=== PATIENT | male | born 1995 | race Caucasian/White ===

== ENCOUNTER 2020-08-01 09:31 | Emergency (ER) | payer OTHER, SELFPAY ==
[2020-08-01 09:45] VITALS: BP 146/83; PULSE 70; RESP 18; TEMP 37.2; O2SAT 100
--- NOTE | 2020-08-01 09:55 | ED.DENTAL ---
HPI - Dental/Oral General Chief complaint: Dental/Oral Stated complaint: Dental/Oral Time Seen by Provider: 08/01/20 09:45 Source: patient and RN notes reviewed Mode of arrival: ambulatory Limitations: no limitations History of Present Illness HPI Narrative: 24-year-old male presents with concern for right lower facial swelling, gum swelling. Reports symptoms started yesterday. Reports a year ago he lost a crown from tooth #28. Denies any problems with infection in the past. Reports pain when he pushes on the area. Denies any intervention. Denies any swollen tongue, difficulty swallowing, drooling. MD Complaint: tooth pain Related Data Allergies Allergy/AdvReac Type Severity Reaction Status Date / Time shellfish derived Allergy Intermediate THROAT, Verified 08/01/20 09:56 LIPS AND TONGUE SWELL Review of Systems Review of Systems: Narrative: CONSTITUTIONAL: Denies malaise, chills, sweats, or fever. EYES: Denies visual changes ENT: Denies rhinorrhea, congestion, sinus pain, otalgia or sore throat. Reports right lower jaw earache swelling CARDIOVASCULAR: Denies chest pain, palpitations, or edema. RESPIRATORY: Denies cough or dyspnea. SKIN: Denies rash or itching. MUSCULOSKELETAL: Denies myalgia. NEUROLOGIC: Denies headache. All systems reviewed & are unremarkable except as noted in HPI and below PMFSH Comments At time of signature, agree with nursing past medical, surgical, social and family history. There is no relevant family history pertinent to the presenting complaint Exam Narrative: Exam Narrative: GENERAL: Well-appearing, well-nourished, and in no acute distress. HEAD: Normocephalic, atraumatic. EYES: PERRLA, conjunctivae clear ENT: Nares clear. Mucous membranes moist. Oropharynx without erythema or lesions. No drooling. Right lower facial swelling noted, periapical abscess noted beneath tooth #28 NECK: Supple. No lymphadenopathy. CHEST: No respiratory distress. Speaks in full sentences. HEART: Regular rate and rhythm. SKIN: Warm, dry, no rash. NEURO: Alert and oriented x3 PSYCH: Normal mood and affect Course Course Emergency Course: Patient is aware of diagnosis, understands and agrees to treatment plan. Anticipatory guidance given. Patient agrees to follow-up as directed and is aware of reasons to seek care at the emergency department. Portions of this record may have been created with voice recognition software Vital Signs Vital signs: Vital Signs Temperature 98.9 F 08/01/20 09:45 Pulse Rate 70 08/01/20 09:45 Respiratory Rate 18 08/01/20 09:45 Blood Pressure 146/83 H 08/01/20 09:45 Pulse Oximetry 100 08/01/20 09:45 Temperature 98.9 F 08/01/20 09:45 Pulse Rate 70 08/01/20 09:45 Respiratory Rate 18 08/01/20 09:45 Blood Pressure 146/83 H 08/01/20 09:45 Pulse Oximetry 100 08/01/20 09:45 Reviewed. Pt has been instructed to follow up with his primary care provider within the next week regarding his elevated blood pressure today. Procedures Abscess I/D oral: Date of Incision: 08/01/20 Time of Incision: 09:58 Side (if applicable): right Technique: needle aspiration Amount of fluid expressed (mL): 10 Irrigation: No Packing used?: none I&D Results: Pus MDM - Dental/Oral MDM Narrative Medical decision making narrative: Patients pain and complaint coupled with physical findings are consistant with dentalgia. There are no focal signs of space occupying lesions that are compromising to the airway; no dysphagia, odynophagia, dysphonia, or dyspnea. No uvular deviation or soft palate edema. Patient is non-toxic appearing. The floor of the mouth is soft with no signs of Jeronimo's Angina; no induration below mandible, no neck pain. Patient is without trismus or drooling and able to swallow secretions. Patient is felt appropriate for discharge home with dental follow up. Critical Care Time Critical Care Time C
== END 2020-08-01 10:10 | disposition home or self-care (01) ==
PROVIDERS: Emergency Provider Nurse Practitioner
DX: K04.7 Periapical abscess without sinus (principal)
CPT/HCPCS: 41800; 99213; G0463

== ENCOUNTER 2023-08-02 14:13 | Emergency (ER) | payer OTHER, SELFPAY ==
[2023-08-02 14:14] VITALS: BP 129/74; PULSE 85; RESP 20; TEMP 36.7; O2SAT 98
--- NOTE | 2023-08-02 14:54 | PC.NURSE ---
Pt seen walking out of waiting toward vehicle with family. RN called to bring him to a room and no answer.
== END 2023-08-02 14:54 | disposition left against medical advice (07) ==
DX: S09.90XA Unspecified injury of head, initial encounter (principal); W10.9XXA Fall (on) (from) unspecified stairs and steps, initial encounter
CPT/HCPCS: 99199

== ENCOUNTER 2024-04-02 09:37 | Emergency (ER) | payer OTHER, SELFPAY ==
--- NOTE | ~2024-04-02 | CT_ITS ---
EXAMINATION: CT facial bones w con DATE: 04/02/2024 11:09 INDICATION: Right facial pain and swelling. TECHNIQUE: Computed tomography (CT) of the facial bones and maxillofacial region was performed with 7 5 mL Omnipaque 350 intravenous contrast. Automated exposure control and iterative reconstruction tech nique were employed. The dose-length product was 293.92 mGy-cm. COMPARISON: None. FINDINGS: There is right face soft tissue swelling. There is mild right submandibular lymphadenopathy , likely reactive. There is mucosal thickening in the paranasal sinuses, worst in right maxillary sin us. Tooth 1 demonstrates a carious lesion and periapical lucencies with breech of the buccal cortex o f the alveolar process. There are carious lesions of 4, 5, 9, 10, 12, and 13. There is a carious lesi on of 16 with periapical lucencies and breech of the buccal cortex of the alveolar process. There are carious lesions of 17, 18, 27, and 28. There is a carious lesion of 29 with periapical lucencies. Th ere is a carious lesion of 30. There is a carious lesion of 31 with periapical lucencies. IMPRESSION: 1. Extensive dental disease. 2. Right face soft tissue swelling. No soft tissue abscess. Reviewed, dictated and finalized at location A.
--- NOTE | 2024-04-02 09:41 | ED.DENTAL ---
HPI - Dental/Oral General Chief complaint: Dental/Oral Stated complaint: facial swelling Time Seen by Provider: 04/02/24 09:40 Source: patient Mode of arrival: ambulatory Limitations: no limitations History of Present Illness HPI Narrative: this is a 28-year-old male with chief complaint of right-sided facial swelling that started this morning after waking up. Patient reports significant pain and pressure just below his eye throughout the right cheek. States that he has not had any recent dental pain but did have a lesion to his buccal mucosa near the gum recently. States that he knows he has bad teeth but has not had any recent infections. Denies fevers, chills, nausea, vomiting, trismus, drooling. Related Data Allergies Allergy/AdvReac Type Severity Reaction Status Date / Time shellfish derived Allergy Intermediate THROAT, Verified 04/02/24 10:29 LIPS AND TONGUE SWELL Review of Systems Review of Systems: All systems as dictated in HPI Exam Narrative: GENERAL: Well-appearing, well-nourished, and in no acute distress. HEAD: Normocephalic, atraumatic. EYES: PERRLA and EOMI. ENT: right-sided facial swelling noted on exam. Significant tenderness throughout right cheek/ maxilla area. No overlying redness or fluctuance. Poor dentition to the upper teeth. Floor of the mouth intact. No trismus. No drooling. Nares clear, no rhinorrhea or epistaxis. Mucous membranes moist. NECK: Supple. No adenopathy or masses. CHEST: No respiratory distress. Clear to auscultation. No wheezes rales or rhonchi HEART: Regular rate and rhythm. No murmur heard. Normal peripheral pulses. ABDOMEN: Soft, nontender, nondistended, normal active bowel sounds. MSK: Normal range of motion. No edema. SKIN: Warm, dry, no rash. NEURO: Alert and oriented x4. No focal deficits. PSYCH: Normal mood and affect. Course Vital Signs Vital signs: Vital Signs Temperature 98.0 F 04/02/24 09:43 Pulse Rate 65 04/02/24 09:43 Respiratory Rate 17 04/02/24 09:43 Blood Pressure 154/94 H 04/02/24 09:43 Pulse Oximetry 98 04/02/24 09:43 Oxygen Delivery Room Air 04/02/24 09:43 Temperature 98.0 F 04/02/24 09:43 Pulse Rate 65 04/02/24 09:43 Respiratory Rate 17 04/02/24 09:43 Blood Pressure 154/94 H 04/02/24 09:43 Pulse Oximetry 98 04/02/24 09:43 Oxygen Delivery Room Air 04/02/24 09:43 MDM - Dental/Oral MDM Narrative Medical decision making narrative: This is a 28-year-old male who presents to the ED for chief complaint of right-sided facial swelling and pain beginning today. vitals are normal. Exam remarkable for the above. No trismus or drooling. No evidence of Jeronimo's angina. lab work remarkable for mildly elevated white count of 12.5. CT facial with con: IMPRESSION: 1. Extensive dental disease. 2. Right face soft tissue swelling. No soft tissue abscess.. presentation consistent with dental disease. Improved greatly with Toradol and steroid shot here. Will be given Augmentin for potential soft tissue infection. Encouraged follow-up with dentist for definitive management. He is understanding and agreeable with this plan. Return precautions given Lab Data 04/02/24 10:29 04/02/24 10:29 Labs: Lab Results 04/02/24 Range/Units 10:29 WBC 12.5 H (4.5-10.0) K/mm3 RBC 5.40 (4.6-6.20) M/mm3 Hgb 16.9 (14.0-18.0) g/dL Hct 48.6 (42.0-52.0) % MCV 90.0 (80-100) fl MCH 31.3 (26-34) pg MCHC 34.8 (32-36) g/dl RDW 12.7 (11.5-14.5) % Plt Count 240 (150-375) k/mm3 MPV 11.6 H (7.4-10.4) fl Immature Gran % (Auto) 0.4 (0-0.5) % Neut % (Auto) 76.8 H (45.5-73.1) % Lymph % (Auto) 12.5 L (18.3-44.2) % [place] % (Auto) 8.5 (2.6-8.5) % Eos % (Auto) 1.6 (0-4.4) % Baso % (Auto) 0.2 (0.2-1.2) % Lymph # (Auto) 1.56 (0.9-3.2) K/mm3 [place] # (Auto) 1.1 H (0.1-0.6) K/mm3 Eos # (Auto) 0.2 (0-0.3) K/mm3 Baso #
[2024-04-02 09:43] VITALS: BP 154/94; PULSE 65; RESP 17; TEMP 36.7; O2SAT 98
[2024-04-02] MEDS: methylPREDNISolone SOD SUCC 125 MG VIAL 80 MG IV PUSH (10:30)
[2024-04-02] MEDS: KETOROLAC 30 MG/ML VIAL (*BKC) IV PUSH (10:30)
[2024-04-02 10:37] LABS: Basophils Percent Auto 0.2 % (0.2-1.2); Eosinophils Absolute Auto 0.2 K/mm3 (0-0.3); Eosinophils Percent Auto 1.6 % (0-4.4); Hematocrit 48.6 % (42.0-52.0); Hemoglobin 16.9 g/dL (14.0-18.0); Immature Granulocyte Absolute 0.05 K/mm3 (0.00-0.031); Immature Granulocyte Percent A 0.4 % (0-0.5); Lymphocytes Absolute Auto 1.56 K/mm3 (0.9-3.2); Lymphocytes Percent Auto 12.5 % (18.3-44.2); Mean Corpuscular HGB Conc 34.8 g/dl (32-36); Mean Corpuscular Hemoglobin 31.3 pg (26-34); Mean Platelet Volume 11.6 fl (7.4-10.4); Monocytes Absolute Auto 1.1 K/mm3 (0.1-0.6); Monocytes Percent Auto 8.5 % (2.6-8.5); Neutrophils Absolute Auto 9.6 K/mm3 (1.3-6.7); Neutrophils Percent Auto 76.8 % (45.5-73.1); Platelet Count Result 240 k/mm3 (150-375); Red Cell Distribution Width 12.7 % (11.5-14.5); White Blood Count 12.5 K/mm3 (4.5-10.0)
[2024-04-02 10:52] LABS: Alanine Aminotransferase 19 U/L (6-50); Albumin Level 4.5 g/dL (3.5-5.1); Alkaline Phosphatase 63 U/L (38-126); Anion Gap 11 mmol/L (4-12); Aspartate Amino Transferase 25 U/L (17-59); Bilirubin,Total 1.1 mg/dL (0.2-1.3); Blood Urea Nitrogen 9 mg/dL (9-20); Carbon Dioxide 25 mmol/L (22-30); Chloride 102 mmol/L (98-107); Estimated CRCL calculation 117 ml/min; Estimated Glomerular Filt Rate > 60; Glucose 130 mg/dL (65-110); Potassium 4.2 mmol/L (3.4-5.0); Sodium 138 mmol/L (137-145)
[2024-04-02 13:31] LABS: CRP < 0.5 mg/dL (<1.0)
== END 2024-04-02 11:38 | disposition home or self-care (01) ==
PROVIDERS: Emergency Provider Physician Assistant
DX: K02.9 Dental caries, unspecified (principal)
CPT/HCPCS: 36415; 70487; 80053; 85025; 86140; 96374; 96375; 99284; J1885; J2919; Q9967

== ENCOUNTER 2024-04-03 08:02 | Inpatient (IN) | payer OTHER, SELFPAY ==
[2024-04-03 08:02] VITALS: BP 158/78; PULSE 88; RESP 16; TEMP 36.4; O2SAT 97
--- NOTE | 2024-04-03 08:33 | ED.DENTAL ---
HPI - Dental/Oral General Chief complaint: Dental/Oral Stated complaint: right sided facial swelling Time Seen by Provider: 04/03/24 08:12 Source: patient Mode of arrival: ambulatory Limitations: no limitations History of Present Illness HPI Narrative: Patient presents with right-sided facial pain and swelling. He denies any fevers. He was here yesterday and obtained labs as well as CT imaging which did not identify an abscess but did note marked dental carmelina. He was given Toradol and steroid and advised to take Motrin and Tylenol and prescribed Augmentin. Patient was unable to greens picker Augmentin as he had to go to work. He states he took the maximum daily allowed dose of Tylenol with no change. He states the pain and swelling has extended to around his right eye but denies any pain with extraocular movements. He cannot recall his last oral intake secondary to pain and nausea. Related Data Home Medications Medication Instructions Recorded Confirmed No Home Medications 04/03/24 04/03/24 Allergies Allergy/AdvReac Type Severity Reaction Status Date / Time shellfish derived Allergy Intermediate THROAT, Verified 04/03/24 08:24 LIPS AND TONGUE SWELL PMFSH Past Medical History Medical History Dental caries Family History Family History Grandparent Acute myocardial infarction Social History Social History Social History: Surrogate medical decision maker: Clare Ivan, spouse. Code status: Full code. Smoking status: Light tobacco smoker Tobacco type: cigars Alcohol intake: current Substance use: never Do You Feel Safe in your Home?: Yes Lack of Transportation: No Lack of Food: Never True Current Housing: I Have Housing Concerned About Future Housing: No Difficulty Paying Gas/Electric Bills: No Difficulty Paying for Meds: No Currently Unemployed: No Education: Associate Degree Difficulty w/ Childcare or Family Care: No Spiritual care concerns: No Exam Narrative: GENERAL: well-nourished, and in no acute distress. HEAD: Normocephalic, atraumatic. EYES: Non injected, non icteric. No pain with EOMs. Face/ENT: Nares clear, no rhinorrhea or epistaxis. Tacky mucous membranes. Floor of mouth without swelling. Mild trismus though is able to open jaw, not clenched and could insert 2 fingers. Right sided facial swelling, palpable externally as well as buccal mucosa but without christina induration. Mild left periorbital swelling and some ecchymosis/ allergic shiners and edema. NECK: Supple. CHEST: Speaking in full sentences. No respiratory distress. HEART: Regular rate and rhythm. . ABDOMEN: Soft, nondistended. EXTREMITIES: Normal range of motion. No edema. SKIN: Warm, dry, no rash. NEURO: No focal deficits. Alert and oriented x3. PSYCH: Normal mood and affect. Course Vital Signs Vital signs: Vital Signs Temperature 97.6 F 04/03/24 08:02 Pulse Rate 88 04/03/24 08:02 Respiratory Rate 16 04/03/24 08:02 Blood Pressure 158/78 H 04/03/24 08:02 Pulse Oximetry 97 04/03/24 08:02 Temperature 98.0 F 04/03/24 21:24 Pulse Rate 87 04/03/24 21:24 Respiratory Rate 14 04/03/24 21:24 Blood Pressure 142/85 H 04/03/24 21:24 Pulse Oximetry 95 04/03/24 21:24 Oxygen Delivery Room Air 04/03/24 12:00 MDM - Dental/Oral MDM Narrative Medical decision making narrative: Patient presents with right-sided facial pain and swelling. He denies any fevers. He was here yesterday and obtained labs as well as CT imaging which did not identify an abscess but did note marked dental carmelina. He was given Toradol and steroid and advised to take Motrin and Tylenol and prescribed Augmentin. Patient was unable to greens picker Augmentin as he had to go to work. He states he took the maximu
[2024-04-03] MEDS: ONDANSETRON INJ 4 MG/2 ML VIAL IV PUSH (09:05)
[2024-04-03] MEDS: MORPHINE SULFATE (*CRX) 4 MG/ML INJ IV PUSH (09:05)
[2024-04-03] MEDS: SODIUM CHLORIDE 0.9% IV 1,000 ML 999 ML IV CONT (09:10)
[2024-04-03] MEDS: VANCOMYCIN 1,250 MG/NS 250 ML 1,250 MG/250 ML BAG 166.67 MG IVPB (09:11)
[2024-04-03 09:12] LABS: Basophils Absolute Auto 0.1 K/mm3 (0.0-0.1); Basophils Percent Auto 0.3 % (0.2-1.2); Eosinophils Absolute Auto 0.1 K/mm3 (0-0.3); Eosinophils Percent Auto 0.7 % (0-4.4); Hematocrit 48.8 % (42.0-52.0); Hemoglobin 17.1 g/dL (14.0-18.0); Immature Granulocyte Absolute 0.06 K/mm3 (0.00-0.031); Immature Granulocyte Percent A 0.4 % (0-0.5); Lymphocytes Absolute Auto 1.72 K/mm3 (0.9-3.2); Lymphocytes Percent Auto 10.3 % (18.3-44.2); Mean Corpuscular Hemoglobin 31.5 pg (26-34); Mean Corpuscular Volume 89.9 fl (80-100); Mean Platelet Volume 11.5 fl (7.4-10.4); Monocytes Absolute Auto 1.5 K/mm3 (0.1-0.6); Monocytes Percent Auto 8.7 % (2.6-8.5); Neutrophils Absolute Auto 13.3 K/mm3 (1.3-6.7); Neutrophils Percent Auto 79.6 % (45.5-73.1); Platelet Count Result 241 k/mm3 (150-375); Red Blood Count 5.43 M/mm3 (4.6-6.20); Red Cell Distribution Width 12.8 % (11.5-14.5); White Blood Count 16.7 K/mm3 (4.5-10.0)
[2024-04-03 09:21] LABS: Anion Gap 12 mmol/L (4-12); Blood Urea Nitrogen 13 mg/dL (9-20); Calcium 8.8 mg/dL (8.4-10.2); Carbon Dioxide 27 mmol/L (22-30); Chloride 98 mmol/L (98-107); Estimated CRCL calculation 115 ml/min; Estimated Glomerular Filt Rate > 60; Glucose 140 mg/dL (65-110); Sodium 137 mmol/L (137-145)
--- NOTE | 2024-04-03 10:55 | ADMGEN ---
This patient, Dang Ivan III, was admitted to Medical Room 253-01. Patient/family oriented to hospital policies and general routines including ID bracelet, bed and alarms, visiting hours, pain management, procedures, bathroom and other care routines, personal items, smoking policy, room service/diet, and visiting hours. Information on how to activate the Rapid Response Team has been discussed. Patient/Family are encouraged to report perceived risks to care and to ask questions if they do not understand what they are told or what they should do.
[2024-04-03 11:24] VITALS: BP 146/78; PULSE 57; RESP 16; TEMP 36.9; O2SAT 98; BMI 29.2
[2024-04-03] MEDS: MORPHINE SULFATE (*CRX) 2 MG/ML INJ IV PUSH (11:32)
[2024-04-03] MEDS: VANCOMYCIN 1,250 MG/NS 250 ML 1,250 MG/250 ML BAG 167 MG IVPB (11:35)
[2024-04-03] MEDS: IBUPROFEN 400 MG TABLET PO ×2 (13:07→17:58)
--- NOTE | 2024-04-03 13:10 | PM.IMHP ---
H&P: HPI History of Present Illness Date/Time: 04/03/24 13:10 Chief Complaint: Swelling right side of face. Narrative: This is a previously healthy 28-year-old male who presented to the emergency department for evaluation of right sided facial swelling. He was seen in the ED yesterday morning after awaking with pressure-like pain and swelling on the right side of his face. CT scan showed extensive dental disease and right face soft tissue swelling with no obvious abscess. He was prescribed Augmentin with instructions to follow-up with his primary care provider and ultimately done as for definitive management. He had to work yesterday and was unable to get the antibiotics filled. When he got up this morning the redness and swelling had worsened quite a bit and he came back in. He has been taking Tylenol for pain without much relief. He denies fever, pain with extraocular motions, nausea, vomiting, shortness of breath, difficulty swallowing, and dental pain. He does however mention having something similar to a canker sore on a right upper gum last week but there was no pain or drainage from that. In the ED: He was afebrile on arrival. Blood pressures have been running in the 140s to 150s systolic. Labs were significant for WBC count of 16.7 and a glucose of 140. He was given vancomycin 1250 mg and is being admitted in this setting for further treatment. Review of Systems Review of Systems: 12 systems were reviewed and are negative except for as per HPI. [facility] Past Medical History Medical History Dental caries Family History Family History Grandparent Acute myocardial infarction Social History Social History Social History: Surrogate medical decision maker: Clare Moncho, spouse. Code status: Full code. Smoking status: Light tobacco smoker Tobacco type: cigars Alcohol intake: current Substance use: never Do You Feel Safe in your Home?: Yes Lack of Transportation: No Lack of Food: Never True Current Housing: I Have Housing Concerned About Future Housing: No Difficulty Paying Gas/Electric Bills: No Difficulty Paying for Meds: No Currently Unemployed: No Education: Associate Degree Difficulty w/ Childcare or Family Care: No Spiritual care concerns: No Meds Home Medications and Allergies Home Medications Medication Instructions Recorded Confirmed Type No Home Medications 04/03/24 04/03/24 History Allergies Allergy/AdvReac Type Severity Reaction Status Date / Time shellfish derived Allergy Intermediate THROAT, Verified 04/03/24 08:24 LIPS AND TONGUE SWELL Vital Signs Vital Signs - 24 hr 04/03/24 08:02 04/03/24 11:24 Temperature 97.6 F 98.4 F Pulse Rate 88 57 L Respiratory Rate 16 16 Blood Pressure 158/78 H 146/78 H Pulse Oximetry 97 98 Exam Narrative: General: Mildly ill-appearing male in the semi-Khan position in bed. Weight: 97.7 kg. BMI: 29.2. HEENT: PERRL, EOMI. Sclera anicteric. Mild swelling of the right upper lip. There is induration erythema over the right cheek with reactive edema under the right eye. Floor of the mouth is without swelling. The area is warm and tender to touch. Neck: Supple. No lymphadenopathy. Respiratory: Lungs are clear to auscultation bilaterally. Cardiovascular: Regular rate and rhythm with S1-S2. Gastrointestinal: Abdomen is soft, nontender, and nondistended with positive bowel sounds. Skin: Warm and dry. No rash or lesions on limited exam. Extremities: No cyanosis, clubbing, or edema. Radial and pedal pulses intact. Neurological: Alert. Cranial nerves 2-12 are grossly intact. No gross focal deficits to casual conversation. Psychiatric: Pleasant and cooperative with normal mood and affect. Judgment and insight intact. H&P:
[2024-04-03 13:48] VITALS: BP 145/77; PULSE 57; RESP 18; TEMP 37.2; O2SAT 99
[2024-04-03 16:12] LABS: MRSA (PCR) NOT DETECTED (NOT DETECTE)
[2024-04-03] MEDS: HYDROcodone/acetaminophen (*CRX) 5-325 MG TABLET 1 TAB PO (17:59)
[2024-04-03] MEDS: AMPICILLIN SULB 3 GM/NS 100 ML 3 GM/100 ML VIAL IVPB (18:03)
[2024-04-03] MEDS: VANCOMYCIN 1,500 MG/NS 500 ML 1,500 MG/500 ML BAG 250 MG IVPB (20:32)
[2024-04-03] MEDS: HYDROmorphone HCL INJ (*CRX) 1 MG/ML SYR 0.5 MG IV PUSH (20:33)
[2024-04-03 21:07] VITALS: O2SAT 95
[2024-04-03 21:24] VITALS: BP 142/85; PULSE 87; RESP 14; TEMP 36.7; O2SAT 95
[2024-04-04 01:17] LABS: Hemoglobin A1C 6.2 % (<5.7)
[2024-04-04] MEDS: HYDROcodone/acetaminophen (*CRX) 7.5-325 MG TABLET 1 TAB PO ×4 (01:27→20:09)
[2024-04-04] MEDS: AMPICILLIN SULB 3 GM/NS 100 ML 3 GM/100 ML VIAL IVPB ×5 (01:29→23:46)
[2024-04-04 04:55] LABS: Hematocrit 49.2 % (42.0-52.0); Hemoglobin 17.2 g/dL (14.0-18.0); Mean Corpuscular Hemoglobin 31.6 pg (26-34); Mean Corpuscular Volume 90.3 fl (80-100); Mean Platelet Volume 11.2 fl (7.4-10.4); Platelet Count Result 215 k/mm3 (150-375); Red Blood Count 5.45 M/mm3 (4.6-6.20); Red Cell Distribution Width 12.7 % (11.5-14.5); White Blood Count 13.2 K/mm3 (4.5-10.0)
[2024-04-04 05:21] LABS: Anion Gap 11 mmol/L (4-12); Blood Urea Nitrogen 9 mg/dL (9-20); Calcium 8.5 mg/dL (8.4-10.2); Carbon Dioxide 27 mmol/L (22-30); Chloride 98 mmol/L (98-107); Estimated CRCL calculation 106 ml/min; Estimated Glomerular Filt Rate > 60; Glucose 132 mg/dL (65-110); Magnesium 1.9 mg/dL (1.6-2.3); Potassium 4.1 mmol/L (3.4-5.0); Sodium 136 mmol/L (137-145)
[2024-04-04 05:37] VITALS: BP 146/85; PULSE 78; RESP 16; TEMP 36.7; O2SAT 96
--- NOTE | 2024-04-04 06:44 | PM.IMPN ---
Progress Note: A&P Assessment and Plan (1) Facial cellulitis: Code(s): L03.211 - Cellulitis of face Status: Acute Assessment and Plan: Right facial swelling started on 04/02. He reported to the ED and was prescribed Augmentin with instructions to follow up with PCP. However he did not fill this prescription and the facial swelling and redness got worse. - CT face: Extensive dental disease and right face soft tissue swelling. No soft tissue abscess. - Received vancomycin 1250 mg in the ED. - Start Unasyn given suspected odontogenic source. (2) Infected dental caries: Code(s): K02.9 - Dental caries, unspecified; K04.7 - Periapical abscess without sinus Status: Acute Assessment and Plan: Ongoing issues with dental caries. - CT face: Extensive dental disease and right face soft tissue swelling. No soft tissue abscess. - Definitive management per dentist. (3) Hyperglycemia: Code(s): R73.9 - Hyperglycemia, unspecified Status: Acute Assessment and Plan: Random glucose was 140. Fasting glucose on am labs: 132 A1c: 6.2 Patient has prediabetes. Suggest diet and exercise. Patient to follow up with his PCP. (4) Elevated blood pressure reading: Code(s): R03.0 - Elevated blood-pressure reading, without diagnosis of hypertension Status: Acute Assessment and Plan: Blood pressures running in the 140s-150s systolic. Trend for now; will likely need ambulatory monitoring. Time Spent With Patient Time with patient: 25 - 35 minutes Subjective Date/time seen: 04/04/24 06:44 Interval history: 28-year-old male who presented to the emergency department for evaluation of right sided facial swelling. Patient is pleasant lying comfortably in bed. He continues to endorse slight pain to the right side of his face that he describes as a pressure. He states that the swelling has improved since yesterday. He remains on IV vanc and unasyn at this time with WBC improving. He states the pain is well controlled on the current pain regimen. He notes that he has a dentist but he has not seen him in several years. Discussed with patient the importance of following up with a dentist for the dental carries as these are the likely cause of his current symptoms. He states understanding. Patient denies any vision changes, pain with EOM, headaches, nausea/vomiting, shortness of breath. Review of Systems Review of Systems: 12 systems were reviewed and are negative except for as per HPI. All systems reviewed & are unremarkable except as noted in HPI and below Exam Narrative: AF HR 78 RR 16 SpO2 96 BP 146/85 General: male in no acute respiratory distress who is nontoxic appearing, lying semi recumbent in bed. HEENT: Normocephalic. Atraumatic. Pupils equal round reactive to light. Extraocular movement intact. Sclera clear and anicteric. Swelling, redness and pain with palpation of the right side of the face extending from the right side of the lips to the right eyebrow. Chest: Lungs are clear to auscultation bilaterally. No wheezes or crackles. CV: Heart was regular rate and rhythm. S1/S2. No murmurs, gallops, or rubs. Abd: Abdomen was soft. Nontender. Nondistended. Positive bowel sounds. No organomegaly or masses. Neuro: Speech is clear. Psych: Normal mood and affect. Patient is pleasant and cooperative. Objective Data Vital Signs Vital Signs: Vital Signs - 24 hr 04/03/24 08:02 04/03/24 11:24 04/03/24 13:48 Temperature 97.6 F 98.4 F 98.9 F Pulse Rate 88 57 L 57 L Respiratory Rate 16 16 18 Blood Pressure 158/78 H 146/78 H 145/77 H Pulse Oximetry 97 98 99 Oxygen Delivery 04/03/24 12:00 04/03/24 21:24 04/03/24 20:00 Temperature 98.0 F Pulse Rate 87 Respiratory Rate 14 Blood Pressure 142/85 H Pulse Oximetry 95 Oxygen Delivery Room Air Room Air 04/03/24 21:07 04/04/24 05:37 Temperature 98.0 F Pulse Rate 78 Respiratory Rate
[2024-04-04] MEDS: VANCOMYCIN 1,500 MG/NS 500 ML 1,500 MG/500 ML BAG 250 MG IVPB (08:18)
[2024-04-04] MEDS: HYDROmorphone HCL INJ (*CRX) 1 MG/ML SYR 0.5 MG IV PUSH (10:48)
[2024-04-04] MEDS: IBUPROFEN 400 MG TABLET PO (12:39)
[2024-04-04 14:00] VITALS: PULSE 102; RESP 20; TEMP 37.1; O2SAT 97
[2024-04-04 14:45] VITALS: BP 142/76
[2024-04-04 20:10] VITALS: BP 149/90; PULSE 93; RESP 18; TEMP 37.1; O2SAT 99
[2024-04-04 21:10] LABS: Vancomycin Trough 8.8 ug/mL (10.0-20.0)
[2024-04-04] MEDS: VANCOMYCIN 1,750 MG/NS 500 ML 1,750 MG/500 ML BAG 250 MG IVPB (22:14)
[2024-04-05 05:13] LABS: Basophils Percent Auto 0.4 % (0.2-1.2); Eosinophils Absolute Auto 0.1 K/mm3 (0-0.3); Eosinophils Percent Auto 1.3 % (0-4.4); Hematocrit 47.3 % (42.0-52.0); Hemoglobin 16.4 g/dL (14.0-18.0); Immature Granulocyte Absolute 0.03 K/mm3 (0.00-0.031); Immature Granulocyte Percent A 0.4 % (0-0.5); Lymphocytes Absolute Auto 1.12 K/mm3 (0.9-3.2); Lymphocytes Percent Auto 15.1 % (18.3-44.2); Mean Corpuscular HGB Conc 34.7 g/dl (32-36); Mean Corpuscular Volume 89.4 fl (80-100); Mean Platelet Volume 11.6 fl (7.4-10.4); Monocytes Absolute Auto 0.7 K/mm3 (0.1-0.6); Monocytes Percent Auto 9.6 % (2.6-8.5); Neutrophils Absolute Auto 5.4 K/mm3 (1.3-6.7); Neutrophils Percent Auto 73.2 % (45.5-73.1); Platelet Count Result 188 k/mm3 (150-375); Red Blood Count 5.29 M/mm3 (4.6-6.20); Red Cell Distribution Width 12.3 % (11.5-14.5); White Blood Count 7.4 K/mm3 (4.5-10.0)
[2024-04-05] MEDS: AMPICILLIN SULB 3 GM/NS 100 ML 3 GM/100 ML VIAL IVPB ×2 (05:30→10:19)
[2024-04-05 05:42] LABS: Alanine Aminotransferase 16 U/L (6-50); Albumin Level 3.9 g/dL (3.5-5.1); Alkaline Phosphatase 60 U/L (38-126); Anion Gap 9 mmol/L (4-12); Aspartate Amino Transferase 24 U/L (17-59); Bilirubin,Total 0.7 mg/dL (0.2-1.3); Blood Urea Nitrogen 10 mg/dL (9-20); Calcium 8.5 mg/dL (8.4-10.2); Carbon Dioxide 27 mmol/L (22-30); Chloride 98 mmol/L (98-107); Estimated CRCL calculation 106 ml/min; Estimated Glomerular Filt Rate > 60; Glucose 126 mg/dL (65-110); Potassium 4.1 mmol/L (3.4-5.0); Sodium 134 mmol/L (137-145)
[2024-04-05 05:50] VITALS: BP 136/69; PULSE 95; RESP 16; TEMP 36.6; O2SAT 95
[2024-04-05] MEDS: VANCOMYCIN 1,750 MG/NS 500 ML 1,750 MG/500 ML BAG 250 MG IVPB (10:55)
--- NOTE | 2024-04-05 11:57 | PM.DS ---
DS: Admitting Diagnosis Discharge Date 04/05/2024 Admitting Diagnosis Facial cellulitis Infected dental caries Hyperglycemia Elevated blood pressure readings DS: Discharge Diagnosis Discharge Diagnosis (1) Facial cellulitis: Code(s): L03.211 - Cellulitis of face Status: Acute (2) Infected dental caries: Code(s): K02.9 - Dental caries, unspecified; K04.7 - Periapical abscess without sinus Status: Acute (3) Hyperglycemia: Code(s): R73.9 - Hyperglycemia, unspecified Status: Acute (4) Elevated blood pressure reading: Code(s): R03.0 - Elevated blood-pressure reading, without diagnosis of hypertension Status: Acute DS: Summary Hospital Course Reason for hospitalization: Facial cellulitis Infected dental caries Hyperglycemia Elevated blood pressure readings Hospital Course: 28-year-old male who presented to the emergency department for evaluation of right sided facial swelling. He was seen in the ED on 04/02 after awaking with pressure-like pain and swelling on the right side of his face. CT scan showed extensive dental disease and right face soft tissue swelling with no obvious abscess. He was discharged on Augmentin, however he did not get it filled. The patient then woke up the following morning with worsening redness swelling that prompted him to return to the emergency department. He was then started on IV antibiotics as he had now developed a leukocytosis. Patient's WBC continued to improve with IV antibiotics for turning to normal prior discharge. Due to patient's cellulitis likely being secondary to his poor dentition, encouraged him to establish with a dentist. Patient states that he now has a dentist appointment tomorrow that the [facility] in [place]. Discussed with patient he is to fill his Augmentin prescription incomplete this course of antibiotics in its entirety. Prior to discharge patients swelling and redness had significantly improved. He denied vision changes and pain with EOM. Care coordination spoke with the patient and he was given resources for a PCP. Discussed with patient that he does qualify for prediabetes and has had elevated blood pressures during this admission. Encouraged a healthy diet and exercise regimen and follow-up with a primary care provider. Patient discharged home in stable condition. He is to fill his prescription of Augmentin that is already at the pharmacy. Status at Discharge Functional status at discharge: independent ambulation Time Spent with Patient Time attestation: Total time spent providing and/or coordinating discharge services: Time spent: Greater than 30 minutes Exam Narrative: AF HR 95 RR 16 SpO2 95 BP 136/69 General: male in no acute respiratory distress who is nontoxic appearing, lying semi recumbent in bed. HEENT: Normocephalic. Atraumatic. Pupils equal round reactive to light. Extraocular movement intact. No pain with EOM. Sclera clear and anicteric. Improved swelling and redness to the right face only from the upper lip to mid cheek. No warmth. Chest: Lungs are clear to auscultation bilaterally. No wheezes or crackles. CV: Heart was regular rate and rhythm. S1/S2. No murmurs, gallops, or rubs. Abd: Abdomen was soft. Nontender. Nondistended. Positive bowel sounds. No organomegaly or masses. DS: Data Data Completed and Pending Labs on day of discharge: Labs from last 24 hours 04/05/24 04/04/24 04:57 20:26 WBC 7.4 RBC 5.29 Hgb 16.4 Hct 47.3 MCV 89.4 MCH 31.0 MCHC 34.7 RDW 12.3 Plt Count 188 MPV 11.6 H Immature Gran % (Auto) 0.4 Neut % (Auto) 73.2 H Lymph % (Auto) 15.[address] [facility] % (Auto) 9.6 H Eos % (Auto) 1.3 Baso % (Auto) 0.4 Lymph # (Auto) 1.12 [facility] # (Auto) 0.7 H Eos # (Auto) 0.1 Baso # (Auto) 0.0 Abs Immat Gran (auto) 0.03 Absolute Neuts (auto) 5.4 Absolute Nucleated RBC 0.000 Nucleated RBC % 0.0 Sodium 134 L Potassium 4.1 Chloride 98
== END 2024-04-05 13:21 | disposition home or self-care (01) | DRG 603 ==
LOC: ANHED 08:25 → ANH2MED 10:27
PROVIDERS: Physician Assistant; Admitting Provider Internal Medicine; Emergency Provider Student in an Organized Health Care Education/Training Program; Visit Provider Student in an Organized Health Care Education/Training Program
DX: L03.211 Cellulitis of face (principal); K02.9 Dental caries, unspecified; K04.7 Periapical abscess without sinus; R73.9 Hyperglycemia, unspecified; D72.829 Elevated white blood cell count, unspecified; R03.0 Elevated blood-pressure reading, without diagnosis of hypertension
CPT/HCPCS: 36415; 70487; 80048; 80053; 80202; 83036; 83735; 85025; 85027; 86140; 87641; 96365; 96366; 96367; 96374; 96375; 96376; 99284; 99285; A9270; G0378; J0295; J1170; J1885; J2270; J2405; J2919; J3370; J7030; Q9967